=== PATIENT | female | born 1950 | race Caucasian/White ===

== ENCOUNTER 2025-01-09 12:30 | Emergency (ER) | payer MEDICARE, SELFPAY ==
[2025-01-09 12:32] VITALS: BP 168/90
[2025-01-09 13:26] VITALS: BMI 33.9
[2025-01-09 13:32] LABS: Hematocrit 44.4 % (37.0-47.0); Hemoglobin 15.2 g/dL (12.0-16.0); Mean Corp Hgb Conc. 34.2 g/dL (33.0-37.0); Mean Corpuscular Volume 89.2 fL (81.0-99.0); Nucleated Red Blood Cells % 0 %; Platelet Count 202 10^3/uL (130-400); Red Cell Dist. Width 13.5 % (11.5-14.5)
[2025-01-09 13:54] LABS: ALT (SGPT) 31 U/L (0-35); AST (SGOT) 33 U/L (14-36); Albumin 4.6 g/dl (3.5-5.0); Alkaline Phosphatase 70 U/L (38-126); Blood Urea Nitrogen 17 mg/dl (7-17); Calcium 9.9 mg/dl (8.4-10.2); Carbon Dioxide 25 mmol/L (22-30); Chloride 104 mmol/L (98-107); Estimated Creatinine Clearance 76 ml/min; Glucose 98 mg/dl (70-99); Potassium 3.8 mmol/L (3.5-5.1); Sodium 136 mmol/L (135-145); Total Protein 7.6 g/dl (6.3-8.2); eGFR > 60.00
[2025-01-09 14:08] LABS: Troponin I < 0.012 ng/ml
--- NOTE | 2025-01-09 14:48 | ED.GENMED ---
History of Present Illness
General
Chief Complaint: Cardiac Symptoms
Source: patient
Exam Limitations: none
Time Seen by Provider: 01/09/25 13:56
Nursing documentation reviewed up to this point in time: agreed with
History of Present Illness
History of Present Illness:
see MDM
Past History
Past History
ED Past Medical History: Hypercholesterolemia and Hypothyroidism
ED Past Surgical History: Orthopedic
Social History
Tobacco: Non-smoker
Personal:
Living: with family
Phy Exam
Physical Exam
Physical Exam:
GENERAL: Alert , in no apparent distress
EYE: pupils equal and reactive
NECK: Supple
ENT: o/p clr, mmm.
CARDIAC: Regular rate and rhythm .
LUNGS: Clear breath sounds bilaterally, no acute respiratory distress, no wheezes/rales/rhonchi
ABDOMEN: Soft, without focal tenderness, no r/g, no cvat, normal bowel sounds
NEUROLOGICAL: Alert and oriented, no focal neuro deficits
SKIN: Warm and dry, skin intact.
MUSCULOSKELETAL: No edema, well perfused. neg soumya's sign
PSYCH: Normal and appropriate interaction.
Course
Orders/Labs/Results
Orders:
Orders
01/09/25 12:37
Electrocardiogram (*1) Urgent
Reason for Study: Palpitations
EKG- Treatment ONCE
01/09/25 13:24
CBC/With Diff [Complete Blood Count/With Diff] Urgent
CMP [Comprehensive Metabolic Panel] Urgent
Troponin I Urgent
01/09/25 14:26
Electrocardiogram (*1) Urgent
Reason for Study: Chest Pain
01/09/25 14:47
EKG- Treatment ONCE
01/09/25 15:04
CR Chest - 2 Views Urgent
Comment:
Reason For Exam: CHST PAIN
01/09/25 15:30
Electrocardiogram (*1) Urgent
Reason for Study: Chest Pain
01/09/25 15:48
Troponin I Urgent
01/09/25 13:24
01/09/25 13:24
Vital Signs
Initial and Last Documented VS:
Initial Vital Signs
Temp Pulse Resp BP Pulse Ox
36.9 C 63 18 168/90 100
01/09/25 12:32 01/09/25 12:32 01/09/25 12:32 01/09/25 12:32 01/09/25 12:32
Last Documented Vital Signs
Temp Pulse Resp BP Pulse Ox
36.9 C 50 19 177/75 98
01/09/25 15:00 01/09/25 16:45 01/09/25 16:40 01/09/25 16:43 01/09/25 16:54
MDM/Problems Addressed
MDM/Problems Addressed:
Note:
CHIEF COMPLAINT(S)
Intermittent chest discomfort and palpitations.
HISTORY OF PRESENT ILLNESS
The patient, a female, reports experiencing episodes of chest discomfort and palpitations. The first episode occurred a week ago while walking in [place], characterized by a burning sensation across the upper chest. The episode subsided without
intervention and was possibly linked to intake of a fatty breakfast, lasting about 10 minutes; was at rest but after some activity.. No nausea or shortness of breath was noted.
The patient describes another episode of discomfort yesterday while at home, noting stress and aggravation as potential triggers. The pain lasted approximately 15 minutes, accompanied by palpitations. This morning, the patient again experienced mild
chest heaviness and palpitations early in the morning, with the discomfort persisting longer than previous episodes.
The patient denies shortness of breath, nausea, or diaphoresis. Historical context includes stress related to personal and familial circumstances, including the recent unemployment of her son and ongoing relocation stresses.
The patient has a medical history of vestibular imbalance, which is a source of ongoing stress management, although it has no direct correlation to the current symptoms. The patient has seen a consumer advocate for palpitations in the past, underwent a
stress test in 2019 which was reported as normal, and has been diagnosed with a right bundle branch block. The chest pain and palpitations are suspected by the consumer advocate to be musculoskeletal in nature.
they called the consumer advocate earlier this week and she is scheudled for nuc stress; but then after sandra's episode they spoke with dr. hdz ([facility]) who recommended she come for eval.
pt is pain free here
ADDITIONAL HISTORY OBTAINED FROM SOURCES OTHER THAN THE PATIENT
According to the patients previous consumer advocate, Dr hdz, visiting the emergency room was advised for further evaluation due to the symptoms and history.
SOCIAL DETERMINANTS AFFECTING HEALTH
The patient reports family stress due to her sons unemployment, ongoing arguments, and emotional strain with her spouse of 51 years. The recent sale of their home and imminent move to [place] contribute to her current stress levels.
ALLERGIES
None reported.
PAST MEDICAL HISTORY
Significant for vestibular imbalance and episodes of palpitations.
MEDICATIONS
Pravastatin was mentioned, although its relevance to reflux was uncertain.
REVIEW OF SYSTEMS
- Cardiovascular: Reports chest discomfort and palpitations. Denies shortness of breath, syncope, or swelling in the legs.
- Respiratory: Denies shortness of breath or cough.
- Gastrointestinal: Initially suspected the chest discomfort was related to reflux; denies nausea.
- Neurological: Discloses stress, related imbalance due to vestibular issues.
PHYSICAL EXAM
GENERAL: Alert , in no apparent distress
EYE: pupils equal and reactive
NECK: Supple
ENT: o/p clr, mmm.
CARDIAC: Regular rate and rhythm .
LUNGS: Clear breath sounds bilaterally, no acute respiratory distress, no wheezes/rales/rhonchi
ABDOMEN: Soft, without focal tenderness, no r/g, no cvat, normal bowel sounds
NEUROLOGICAL: Alert and oriented, no focal neuro deficits
SKIN: Warm and dry, skin intact.
MUSCULOSKELETAL: No edema, well perfused. neg soumya's sign
PSYCH: Normal and appropriate interaction.
Nursing notes reviewed and vital signs reviewed.
PROBLEM LIST
Acute:
- Episodic chest discomfort
- Palpitations
Chronic:
- Vestibular imbalance
PLAN
- Perform cardiac enzyme testing to rule out myocardial infarction.
- Review electrocardiogram results to confirm right bundle branch block status.
- Consider consultation with cardiology for further evaluation due to recurrent episodes of chest discomfort.
DIFFERENTIAL DIAGNOSIS
The Differential Diagnosis includes, in no particular order and is not limited to:
1. Musculoskeletal chest pain
2. Gastroesophageal reflux disease
3. Anxiety-related symptoms
4. Atrial fibrillation
5. Pericarditis
6. Myocardial ischemia
7. Costochondritis
8. Panic disorder
9. Angina pectoris
10. Palpitation due to arrhythmia
74-year-old with hyperlipidemia presents for atypical sounding chest discomfort lasting several minutes at rest she felt like a burning in her upper chest, it sounds as if maybe she described it to her consumer advocate on-call today as exertional
however to me she denies that it was. She is pain-free now.
has remained pain-free here. I spoke with her consumer advocate on-call at [facility] named Dr. Loya who was able to pull up her old EKG which shows a chronic right bundle branch block. This is unchanged from her current EKG. He was aware that she is
scheduled for a nuke stress test next week and did agree with the plan of 2 negative troponins and pain-free patient could go home. Her blood pressure is slightly elevated however she seems rather anxious and is probably related to whitecoat
syndrome. She will follow this up next week. Return for any concerns
*Pulse Oximetry
SaO2: 99
Oxygen Mode of Delivery: Room air
Patient hypoxic: no (98)
*Critical Care Note
Total Time (30-74mins, 75-104mins- exclusive of procedures): Not Applicable
ED Attending Note
-
Portions of this chart may have been created with voice recognition software.� Occasional wrong word or��sound alike� substitutions may have occurred due to the inherent limitations of voice recognition software.
Discharge Plan
Departure
Patient Disposition: Home (Routine Discharge)
Date of Disposition: 01/09/25
Time of Disposition: 16:26
Patient with high blood pressure during this ER visit?: Yes
Condition: Fair
Covid-19: Not Applicable
Discharge Problem:
Chest pain
Instructions: Chest Pain (DC)
Prescriptions:
No Action
triamterene-hydrochlorothiazid 1 CAPSULE capsule
1 cap PO DAILY
levothyroxine 100 MCG tablet
100 mcg PO DAILY
Referrals:
UNKNOWN - PT DOES,NOT KNOW [Family Provider]
Activity Restrictions/Additional Instructions:
YOUR 2 CARDIAC MARKERS ARE NEGATIVE
YOUR CHEST XRAY WAS CLEAR
YOUR OTHER BLOOD WORK WAS NORMAL
FOLLOW UP WITH THE NEMATOLOGY TEACHER PLANNED
RETURN FOR SEVERE PAIN OR ANY CONCERNS.
Interventions
Interventions:
*Risk Screen - Suicide Last Done: 01/09/25 12:32
*General Assessment Last Done: 01/09/25 12:32
*Neglect/Abuse Screening Last Done: 01/09/25 12:32
*Nursing Disposition Last Done: 01/09/25 16:55
ED- Pulmonary Assessment Last Done: 01/09/25 13:26
ED- Cardiac Assessment Last Done: 01/09/25 13:26
Discharge Date and Time
Discharge Date/Time: 01/09/25 17:05
Print Language: SETSWANA
[2025-01-09 14:58] VITALS: BP 154/74
[2025-01-09 15:00] VITALS: BP 154/74
[2025-01-09 16:21] LABS: Troponin I < 0.012 ng/ml
[2025-01-09 16:40] VITALS: BP 171/69
[2025-01-09 16:43] VITALS: BP 177/75
== END 2025-01-09 17:05 | disposition home or self-care (01) ==
LOC: EMR 12:30
PROVIDERS: Physician Assistant; EMERGENCY PHYSICIAN Emergency Medicine
DX: R07.89 Other chest pain (principal); R00.2 Palpitations; E03.9 Hypothyroidism, unspecified; E78.00 Pure hypercholesterolemia, unspecified; I45.10 Unspecified right bundle-branch block; Z63.8 Other specified problems related to primary support group
CPT/HCPCS: 99285; 71046; 80053; 84484; 85025; 93005